=== PATIENT | male | born 1970 | race Caucasian/White ===

== ENCOUNTER 2024-12-29 21:26 | Emergency (ER) | payer MEDICAID ==
[~2024-12-29] VITALS: Ht 188 cm; Wt 122.7 kg
[2024-12-29 21:34] VITALS: TEMP 98.1
[2024-12-29 22:15] LABS: EOSINOPHILS % (AUTO) 3.5 % (1.0-6.0); HEMATOCRIT 45.3 % (41-53); HEMOGLOBIN 15.3 g/dL (13.5-17.5); LYMPHOCYTES # (AUTO) 1.8 K/uL (1.0-4.8); LYMPHOCYTES % (AUTO) 33.7 % (22.0-44.0); MEAN CORPUSCULAR HEMOGLOBIN 29.1 pg (26.0-34.0); MEAN CORPUSCULAR HGB CONC 33.7 G/dL (31.0-37.0); MEAN CORPUSCULAR VOLUME 87 fL (80-100); MONOCYTES # (AUTO) 0.3 K/uL (0.1-1.0); MONOCYTES % (AUTO) 5.7 % (2.0-9.0); NEUTROPHILS # (AUTO) 2.9 K/uL (1.8-7.7); NEUTROPHILS % (AUTO) 56.1 % (40.0-70.0); PLATELET COUNT (AUTO) 238 K/uL (150-450); RED BLOOD CELL COUNT(AUTO) 5.24 MIL/uL (4.50-5.90); RED CELL DISTRIBUTION WIDTH 13.7 % (11.5-14.5); WHITE BLOOD COUNT (AUTO) 5.2 K/uL (4.5-11.0)
[2024-12-29 22:25] LABS: ANION GAP 9 mmol/L (8-16); CALCIUM, TOTAL 9.3 mg/dL (8.8-10.5); CARBON DIOXIDE 27 mmol/L (22-29); CHLORIDE 97 mmol/L (98-107); CREATININE 0.96 mg/dL (0.60-1.30); GLOMERULAR FILTR. RATE CALC > 60 mL/min (>60); SODIUM SERUM 133 mmol/L (136-145); UREA NITROGEN, BLOOD 13 mg/dL (7-18)
[2024-12-29 22:28] LABS: ALBUMIN 3.7 g/dL (3.4-5.0); BILIRUBIN,DIRECT 0.1 mg/dL (0.00-0.20); BILIRUBIN,TOTAL 0.7 mg/dL (0.1-1.0); TOTAL PROTEIN, SERUM 7.1 g/dL (6.4-8.2)
[2024-12-29 22:30] LABS: GLUCOSE,RANDOM 434 mg/dL (70-110)
[2024-12-30 00:42] LABS: CREATINE KINASE, TOTAL ONLY 124 U/L (39-308)
[2024-12-30] MEDS: SODIUM CHLORIDE 0.9% 1,000 ML IV ONE (00:42)
[2024-12-30 00:43] LABS: TROPONIN I-HIGH SENSITIVITY Less Than 4 ng/L (<76)
[2024-12-30 00:48] LABS: PROTHROMBIN TIME 10.4 SEC (9.4-11.6)
[2024-12-30 01:00] LABS: B-TYPE NATRIURETIC PEPTIDE < 5 pg/mL (0-100)
[2024-12-30 02:03] LABS: APPEARANCE,URINE CLEAR (CLEAR); BILIRUBIN,URINE NEGATIVE (NEGATIVE); COLOR,URINE COLORLESS (YELLOW); GLUCOSE, URINE (UA) >=1000 mg/dL (NEGATIVE); KETONES,URINE TRACE mg/dL (NEGATIVE); LEUKOCYTE ESTERASE ,URINE TRACE (NEGATIVE); NITRATE,URINE NEGATIVE (NEGATIVE); OCCULT BLOOD,URINE NEGATIVE (NEGATIVE); PH,URINE 5.5 (5.0-8.0); PROTEIN,URINE NEGATIVE (NEGATIVE); SPECIFIC GRAVITIY, URINE 1.037 (1.003-1.030); UROBILINOGEN,URINE <=1.0 mg/dL (<=1.0)
[2024-12-30 02:19] LABS: RBC,URINE 0-2 /HPF (0-2)
[2024-12-30 02:20] LABS: BACTERIA,URINE Moderate /HPF (None Seen); SQUAMOUS EPITHELIAL CELL,UR Rare /LPF (None Seen)
[2024-12-30] MEDS: INSULIN REGULAR, HUMAN 100 UNITS/ML IVP ONE (02:25)
[2024-12-30] MEDS: PredniSONE 20 MG TABLET PO ONE (03:33)
[2024-12-30] MEDS ORDERED: PRED-554 PO (03:36)
[2024-12-30] MEDS ORDERED: ACYC-138 PO (03:38)
[2024-12-30 03:44] VITALS: BP 127/87; PULSE 80; RESP 18; O2SAT 98
[2024-12-30] MEDS ORDERED: GLIP2.5T28 PO (03:50)
== END 2024-12-30 04:15 | disposition home or self-care (01) ==
LOC: EMS 21:29
DX: E11.9 Type 2 diabetes mellitus without complications (principal); G51.0 Bell's palsy
CPT/HCPCS: 70450; 80048; 80076; 81001; 82009; 82550; 82962; 83880; 84484; 85025; 85610; 85730; 87086; 93005; 96361; 96374; 99285; J1815; J7030; 36415-L1; 36415-TC